=== PATIENT | male | born 1935 | race Caucasian/White ===

== ENCOUNTER → 2018-08-31 | Outpatient (CLI) | payer MEDICARE ==
[~2018-08-31] MED LIST: AMLO2.5T5 PO; APIX5TAB PO; FLEC100T PO
== END | disposition home or self-care (01) ==
LOC: CFH 14:57
PROVIDERS: ATTEND Orthopaedic Surgery
DX: S13.150A Subluxation of C4/C5 cervical vertebrae, initial encounter (principal); M48.02 Spinal stenosis, cervical region; M50.30 Other cervical disc degeneration, unspecified cervical region; M43.22 Fusion of spine, cervical region; M25.78 Osteophyte, vertebrae; M40.40 Postural lordosis, site unspecified; X58.XXXA Exposure to other specified factors, initial encounter; Y93.89 Activity, other specified; Y92.89 Other specified places as the place of occurrence of the external cause; Y99.8 Other external cause status
CPT/HCPCS: 72050; 72141